=== PATIENT | male | born 1975 | race Caucasian/White ===

== ENCOUNTER 2021-06-11 19:22 | Emergency (ER) | payer SELFPAY ==
[2021-06-11] MEDS ORDERED: HYDROCODON-ACE1 EAC4 PO (20:17)
== END 2021-06-11 20:50 | disposition home or self-care (01) ==
LOC: ER1 19:22
DX: M25.511 Pain in right shoulder (principal); F17.200 Nicotine dependence, unspecified, uncomplicated; I10 Essential (primary) hypertension; E11.9 Type 2 diabetes mellitus without complications; X50.9XXA Other and unspecified overexertion or strenuous movements or postures, initial encounter; Y92.410 Unspecified street and highway as the place of occurrence of the external cause
CPT/HCPCS: 73030; 96374; 96375; 99283; J2270; J2405